=== PATIENT | female | born 1990 | race Caucasian/White ===

== ENCOUNTER 2016-11-15 19:31 | Emergency (ER) | payer MEDICAID ==
[2016-11-15 20:45] VITALS: BP 124/76
[2016-11-15] MEDS ORDERED: NORMAL SALINE 1,000 ML IV ONE (21:32)
[2016-11-15] MEDS ORDERED: METOCLOPRAMIDE HCL 5 MG/ML VIAL IV ONE (21:32)
[2016-11-15] MEDS ORDERED: KETOROLAC TROMETHAMINE 30 MG/ML VIAL IV ONE (21:32)
[2016-11-15] MEDS ORDERED: diphenhydrAMINE HCL 50 MG/ML VIAL IV ONE (21:32)
--- NOTE | 2016-11-15 21:39 | ERNOTE ---
Headache ER HPI - Narrative Date of Service: 11/15/16 - General Presenting Symptoms: "migraine" Time Seen by Provider: 11/15/16 21:27 Source: patient Exam Limitations: no limitations - Immun/Allergies/Home Medications Immunizations: IMMUNIZATION HX Immunizations Up to Date Yes History of Influenza Vaccine Yes Hx Pneumococcal Vaccination No Allergies/Adverse Reactions: Allergies latex Allergy (Mild, Verified 06/30/16 10:04) HIVES, ITCHING Home Medications: HOME MEDICATIONS ALPRAZolam [Xanax] 0.5 mg PO TID PRN 06/29/16 [Last Taken Unknown] Benzonatate [Tessalon Perle] 100 mg PO TID PRN 06/29/16 [Last Taken Unknown] Citalopram Hydrobromide [Celexa] 30 mg PO DAILY 06/29/16 [Last Taken Unknown] Norethindrone-E.estradiol-Iron [Loestrin Fe 1.5-30 Tablet] 1 each PO DAILY 06/29 [Last Taken Unknown] diphenhydrAMINE HCL [Benadryl] 50 mg PO HS 06/29/16 [Last Taken Unknown] - History of Present Illness Narrative: Pt. comes in with c/o headache since 2 pm this afternoon. Pt. states that she has had migraines in the past and while this is not the worst headache of her life she states that it is one of the worst. Pt. states that she has mild dizziness and eye floaters. Pt. states that everything is worsened by light and sound and states that she has had some accompanying body aches as well. PT. denies any recent illness exposure or insect bites. Pt. states taht she has tried essential oils, ibuprofen, and tylenol without relief. Review of Systems - Review of Systems Constitutional: Present: malaise. Absent: fever, chills, weakness, fatigue EYE: Present: other - floaters ENT: Present: no symptoms reported Respiratory: Present: no symptoms reported. Absent: shortness of breath, cough , wheezing Cardiology: Present: no symptoms reported. Absent: chest pain, palpitations, edema Gastrointestinal/Abdominal: Present: nausea, vomiting. Absent: diarrhea, abdominal pain Genitourinary: Present: no symptoms reported Musculoskeletal: Present: no symptoms reported. Absent: back pain, joint pain Neurological: Present: headache, dizziness/light-headedness. Absent: numbness, tingling Endocrine: Present: no symptoms reported. Absent: intolerance to heat, intolerance to cold, increased hunger, increased urine, unexplained weight gain All Other Systems: All systems neg except as marked - Patient's Past Medical History Patient History - Medical: Anemia, Anxiety, Depression, GERD Patient History - Cardiac/Respiratory: Asthma Patient History - Cancer: No Hx of Cancer Patient History - Surgical Procedures: Colonoscopy, EGD, T & A, Other Patient History - Other: None - Family History Brother Family History - Medical: Other Family History - Cardiac/Respiratory: No pertinent hx Father Family History - Medical: Arthritis, GERD, Other Family History - Cardiac/Respiratory: No pertinent hx Mother Family History - Medical: Hypothyroidism, Migraines, Rheumatoid Arthritis Family History - Cardiac/Respiratory: No pertinent hx - Social History Living Situations: spouse Abuse History: No History of abuse Psych History: Hx of Anxiety, Hx of Depression, Current tx/ever been on anti- depressants or anti-anxiety meds Alcohol Use: occasionally Drug Use: none - Immunizations Immunizations Up to Date: Yes Hx Pneumococcal Vaccination: No History of Influenza Vaccine: Yes Physical Exam - Physical Exam General Appearance: Present: wd/wn, alert, no apparent distress Eye Exam: Normal inspection: bilateral, PERRL: bilateral, EOMI: bilateral Ears, Nose, Throat: Present: normal ENT inspection, normal pharynx Neck: Present: normal inspection, nontender. 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 Absent: pallor, skin rash ED Progress - Results and Orders Patient's Lab Results:: I have reviewed the patient's lab results. - Vital Signs Patient's Vital Signs:: I have reviewed the patient's vital signs. Vital Signs: Vital Signs 11/15/16 20:41 Temperature 36.3 C L Pulse Rate 61 Respiratory 14 Rate Blood Pressure 124/76 O2 Sat by Pulse 99 Oximetry - Progress/Reassessment Chief Complaint: Headache Progress:: Pain free at discharge Departure Clinical Impression: Migraine Qualifiers: Migraine type: without aura Status migrainosus presence: without status migrainosus Intractability: not intractable Qualified Code(s): G43.009 - Migraine without aura, not intractable, without status migrainosus - Departure Disposition: Home self-care Condition: Good Instructions: Recurrent Migraine Headache, [id number] Additional Instructions: Please follow up with primary provider in 2-3 days. Referrals: Roxana Sherwood DO [Primary Care Provider] -
[2016-11-15 21:53] LABS: Hematocrit 39.2 % (37.0-47.0); Hemoglobin 13.8 gm/dL (12.5-16.0); Mean Cell Volume 86.2 fl (78-100); Mean Corpuscular Hemoglobin 30.3 pg (27-31); Mean Corpuscular Hgb Conc 35.2 g/dl (32-36); Mean Platelet Volume 9.8 fl (6.0-9.5); Neutrophil # 6.7 K/mm3 (1.3-6.0); Neutrophil % 61.1 % (42-75.0); Platelet Count 213 K/mm3 (150-450); Red Blood Count 4.55 M/mm3 (4.2-5.4); Red Cell Distribution Width 12.1 % (11.5-14.0); White Blood Count 10.9 K/mm3 (4.0-10.5)
[2016-11-15 22:07] LABS: Albumin * 3.6 gm/dl (3.4-5.0); Anion Gap 15.9 mmol/L (6.8-13.8); BUN/Creatinine Ratio 11.4 (9.0-21.6); Bilirubin, Total 0.2 mg/dL (0.0-1.1); Ca. Corrected For Albumin 8.6 mg/dL (8.4-10.2); Calcium * 8.6 mg/dL (7.9-10.9); Carbon Dioxide 25.7 mmol/L (24-32.6); Potassium 3.6 mmol/L (3.4-4.6)
[2016-11-15] MEDS ORDERED: KETOROLAC TROMETHAMINE 30 MG/ML VIAL ONE (22:19)
[2016-11-15] MEDS ORDERED: diphenhydrAMINE HCL 50 MG/ML VIAL ONE (22:19)
[2016-11-15] MEDS ORDERED: METOCLOPRAMIDE HCL 5 MG/ML VIAL ONE (22:20)
== END 2016-11-16 00:33 | disposition home or self-care (01) ==
LOC: ER 19:31
DX: G43.009 Migraine without aura, not intractable, without status migrainosus (principal)

== ENCOUNTER 2016-11-16 15:56 | Emergency (ER) | payer MEDICAID ==
[2016-11-16] MEDS ORDERED: KETOROLAC TROMETHAMINE 60 MG/2 ML VIAL IM ONE (16:16)
[2016-11-16] MEDS ORDERED: METOCLOPRAMIDE HCL 5 MG/ML VIAL ONE (16:16)
[2016-11-16] MEDS ORDERED: diphenhydrAMINE HCL 50 MG/ML VIAL ONE (16:16)
[2016-11-16] MEDS: METOCLOPRAMIDE HCL 5 MG/ML VIAL IM ONE (16:23)
[2016-11-16] MEDS: KETOROLAC TROMETHAMINE 60 MG/2 ML VIAL IM ONE (16:24)
[2016-11-16] MEDS: diphenhydrAMINE HCL 50 MG/ML VIAL IM ONE (16:24)
--- NOTE | 2016-11-16 16:30 | ERNOTE ---
Headache ER HPI - Narrative Date of Service: 11/16/16 - General Presenting Symptoms: "migraine" Time Seen by Provider: 11/16/16 16:05 Source: patient Exam Limitations: no limitations - Immun/Allergies/Home Medications Immunizations: IMMUNIZATION HX Immunizations Up to Date Yes History of Influenza Vaccine Yes Hx Pneumococcal Vaccination No Allergies/Adverse Reactions: Allergies latex Allergy (Mild, Verified 11/16/16 16:04) HIVES, ITCHING Home Medications: HOME MEDICATIONS ALPRAZolam [Xanax] 0.5 mg PO TID PRN 06/29/16 [Last Taken Unknown] Norethindrone-E.estradiol-Iron [Loestrin Fe 1.5-30 Tablet] 1 each PO DAILY 06/29 [Last Taken Unknown] - History of Present Illness Narrative: Pt. comes in with c/o headache that is worse than her headache yesterday since this morning. Pt. denies any prehospital treatment today but also states that her hips are painful. Pt. denies any pain in her neck or back. Pt. is currently on her menstral cycle. Review of Systems - Review of Systems Constitutional: Present: no symptoms reported. Absent: recent illness, fever, chills, weakness, fatigue, malaise EYE: Present: no symptoms reported ENT: Present: no symptoms reported Respiratory: Present: no symptoms reported. Absent: shortness of breath, cough , wheezing Cardiology: Present: no symptoms reported. Absent: chest pain, palpitations, edema Gastrointestinal/Abdominal: Present: no symptoms reported. Absent: nausea, vomiting, diarrhea Genitourinary: Present: no symptoms reported Musculoskeletal: Present: no symptoms reported. Absent: back pain, joint pain Skin: Present: no symptoms reported. Absent: rash, change in hair/nails Neurological: Present: no symptoms reported. Absent: headache, dizziness/light- headedness, numbness, tingling All Other Systems: All systems neg except as marked - Patient's Past Medical History Patient History - Medical: Anemia, Anxiety, Depression, GERD Patient History - Cardiac/Respiratory: Asthma Patient History - Cancer: No Hx of Cancer Patient History - Surgical Procedures: Colonoscopy, EGD, T & A, Other Patient History - Other: None - Family History Brother Family History - Medical: Other Family History - Cardiac/Respiratory: No pertinent hx Father Family History - Medical: Arthritis, GERD, Other Family History - Cardiac/Respiratory: No pertinent hx Mother Family History - Medical: Hypothyroidism, Migraines, Rheumatoid Arthritis Family History - Cardiac/Respiratory: No pertinent hx - Social History Living Situations: home Abuse History: No History of abuse Psych History: Hx of Anxiety, Hx of Depression, Current tx/ever been on anti- depressants or anti-anxiety meds Smoking Status: Current every day smoker Alcohol Use: occasionally Drug Use: none - Immunizations Immunizations Up to Date: Yes Hx Pneumococcal Vaccination: No History of Influenza Vaccine: Yes Physical Exam - Physical Exam General Appearance: Present: wd/wn, alert, no apparent distress Eye Exam: Normal inspection: bilateral, PERRL: bilateral, EOMI: bilateral Ears, Nose, Throat: Present: normal ENT inspection, normal pharynx Neck: Present: normal inspection, nontender. Absent: lymphadenopathy (R), lymphadenopathy (L) Respiratory: Present: no respiratory distress, normal breath sounds, no accessory muscle use, chest nontender, lungs clear Cardiovascular/Chest: Present: regular rate, rhythm, no murmur, normal peripheral pulses Gastrointestinal/Abdominal: Present: normal bowel sounds, nontender, nondistended, soft, no organomegaly Back Exam: Present: normal inspection, normal range of motion, no CVA tenderness , no vertebral tenderness Extremity Exam: Present: normal inspection, non-tender, normal range of motion, no edema Neurological Exam: Present: alert, oriented, normal mood/affect, no motor/ sensory deficits, network operations analyst II-XII nml as tested, normal cerebellar test Skin Exam: Present: normal color, warm/dry. Absent: pallor, skin rash ED Progress - Results and Orders Patient's Lab Results:: I have reviewed the patient's lab results. - Vital Signs Patient's Vital Signs:: I have reviewed the patient's vital signs. Vital Signs: Vital Signs 11/16/16 15:59 Temperature 36.2 C L Pulse Rate 101 H Respiratory 12 Rate Blood Pressure 158/94 O2 Sat by Pulse 97 Oximetry - CT/Ultrasound CT/Ultrasound Narrative: Head CT negative for acute intracranial process - Progress/Reassessment Chief Complaint: Headache Progress:: Improved Departure Clinical Impression: Migraine Qualifiers: Migraine type: without aura Status migrainosus presence: without status migrainosus Intractability: not intractable Qualified Code(s): G43.009 - Migraine without aura, not intractable, without status migrainosus - Departure Disposition: Home self-care Condition: Good Instructions: Recurrent Migraine Headache Additional Instructions: Please start magnesium daily, increase your control as ordered by SENIOR DATA DEVELOPER, and follow up with either Dr Sherwood or [facility] which ever one can get you in sooner. Take 600mg Ibuprofen with 50mg of Benadryl for headaches when they start. Referrals: Roxana Sherwood DO [Primary Care Provider] - Nelly Abdalla MD [Staff Physician] -
[2016-11-16 16:52] LABS: Urine Bilirubin Negative (NEGATIVE); Urine Blood 250 /ul (NEGATIVE); Urine Ketone Negative (NEGATIVE); Urine Nitrite Negative (NEGATIVE); Urine Protein Negative (NEGATIVE); Urine Specific Gravity <=1.005 SP.GR. (1.005-1.010); Urine Urobilinogen Normal (NORMAL)
[2016-11-16 17:04] LABS: Urine Appearance Clear; Urine Color Yellow
[2016-11-16 17:05] LABS: Urine Bacteria 1+; Urine RBC 0-5 /hpf (0-5); Urine WBC None Seen /hpf (0-5)
[2016-11-16 17:16] VITALS: BP 110/63
== END 2016-11-16 17:35 | disposition home or self-care (01) ==
LOC: ER 15:56
DX: G43.009 Migraine without aura, not intractable, without status migrainosus (principal); F41.8 Other specified anxiety disorders